=== PATIENT | male | born 1955 | race Caucasian/White ===

== ENCOUNTER 2020-03-23 10:27 | Day surgery (SDC) | payer OTHER ==
[~2020-03-23] VITALS: Ht 175.3 cm; Wt 87.0 kg
[2020-03-23 11:01] VITALS: BP 115/86
[2020-03-23] MEDS ORDERED: LACTATED RINGERS 1,000 ML IV SCH (11:02)
[2020-03-23] MEDS ORDERED: CHLORHEXIDINE 15 ML UDC MM ONE (11:03)
[2020-03-23] MEDS ORDERED: OXYMETAZOLINE NASAL SPRAY 0.05%, 15ML ONE (11:18)
[2020-03-23] MEDS ORDERED: NEOSPORIN OINT, 15GM ONE (11:18)
[2020-03-23] MEDS ORDERED: LIDOCAINE 1%-EPI 1:100K, 20ML ONE (11:18)
[2020-03-23] MEDS ORDERED: ASPI-515 PO (11:22)
[2020-03-23] MEDS ORDERED: ATOR40TA78 PO (11:22)
[2020-03-23] MEDS ORDERED: STATIN (11:22)
[2020-03-23] MEDS ORDERED: DEXAMETHASONE 4 MG/ML, 1ML ONE (11:35)
[2020-03-23] MEDS ORDERED: LIDOCAINE-MPF 2% ,5ML ONE (11:35)
[2020-03-23] MEDS ORDERED: MIDAZOLAM 1 MG/ML, 2ML ONE (11:35)
[2020-03-23] MEDS ORDERED: GLYCOPYRROLATE 0.2MG/1ML, 5ML ONE (11:35)
[2020-03-23] MEDS ORDERED: PROPOFOL 10 MG/ML, 20ML ONE (11:35)
[2020-03-23] MEDS ORDERED: ROCURONIUM 10MG/ML,5ML ONE (11:35)
[2020-03-23] MEDS ORDERED: FENTANYL PF 250 MCG/5ML ONE (11:36)
[2020-03-23] MEDS ORDERED: MIDAZOLAM 1 MG/ML, 2ML IV PRN (12:00)
[2020-03-23] MEDS ORDERED: HYDROcodone/APAP 7.5-325MG/15ML UDC PO PRN (12:00)
[2020-03-23] MEDS ORDERED: HYDROmorphone 1 MG/ML, 1ML INJ IVPush PRN (12:00)
[2020-03-23] MEDS ORDERED: DIPHENHYDRAMINE 50 MG/ML, 1ML IVPush PRN (12:00)
[2020-03-23] MEDS ORDERED: MEPERIDINE/PF 25MG/0.5ML IVPush PRN (12:00)
[2020-03-23] MEDS ORDERED: HALOPERIDOL 5 MG/ML IV PRN (12:00)
[2020-03-23] MEDS ORDERED: LABETALOL 5MG/ML, 20ML IV PRN (12:00)
[2020-03-23] MEDS ORDERED: FENTANYL PF 100 MCG/2ML IV PRN (12:00)
[2020-03-23] MEDS ORDERED: hydrALAzine 20 MG/ML, 1ML IV PRN (12:00)
[2020-03-23] MEDS ORDERED: KETOROLAC 30 MG/1 ML IV PRN (12:00)
[2020-03-23] MEDS ORDERED: ACETAMINOPHEN 325 MG TABLET PO PRN (12:00)
[2020-03-23] MEDS ORDERED: ALBUTEROL/IPRATROPIUM 2.5MG/0.5MG, 3 ML NPPB PRN (12:00)
[2020-03-23] MEDS ORDERED: LORazepam 2 MG/ML, 1ML IVPush PRN (12:00)
[2020-03-23] MEDS ORDERED: EPHEDRINE 50 MG/ML, 1ML IVPush PRN (12:00)
[2020-03-23] MEDS ORDERED: DIAZEPAM 5 MG/ML, 2ML IVPush PRN (12:00)
[2020-03-23] MEDS ORDERED: METOCLOPRAMIDE 5 MG/ML, 2ML IVPush PRN (12:00)
[2020-03-23] MEDS ORDERED: OXYcodone 5 MG/5 ML ORAL.SOL UDC PO PRN (12:00)
[2020-03-23] MEDS ORDERED: EPHEDRINE 50 MG/ML, 1ML IM PRN (12:00)
[2020-03-23] MEDS ORDERED: ONDANSETRON 2MG/ML, 2ML IVPush PRN (12:00)
[2020-03-23] MEDS ORDERED: EPHEDRINE 50 MG/ML, 1ML ONE (12:49)
[2020-03-23] MEDS ORDERED: LABETALOL 5MG/ML, 20ML ONE (12:49)
[2020-03-23] MEDS ORDERED: ACETAMINOPHEN 650 MG/20.3 ML UDC ONE (14:32)
== END 2020-03-23 15:55 | disposition home or self-care (01) ==
LOC: OUT 10:27
PROVIDERS: ATTEND Otolaryngology
DX: J34.2 Deviated nasal septum (principal); Z11.59 Encounter for screening for other viral diseases; J34.3 Hypertrophy of nasal turbinates; J34.89 Other specified disorders of nose and nasal sinuses; I25.10 Atherosclerotic heart disease of native coronary artery without angina pectoris; Z79.82 Long term (current) use of aspirin; Z79.899 Other long term (current) drug therapy
CPT/HCPCS: 30140; 30520; 36415; 87635; 93005; J1100; J2250; J2704; J3010; J3490; J7120